=== PATIENT | male | born 1995 | race Caucasian/White ===

== ENCOUNTER 2018-04-22 15:48 | Emergency (ER) | payer BC ==
[2018-04-22] MEDS: IBUPROFEN 800 MG TAB PO (16:54)
[2018-04-22] MEDS: LIDOCAINE 1% (MDV) 10 ML INJ INJ (17:52)
[2018-04-22] MEDS: CEFAZOLIN 1 GM INJ IM (19:02)
[2018-04-22] MEDS: DIPHTH/TET/ACEL PERTUSS (ADULT) 0.5 ML VIAL IM* (19:05)
== END 2018-04-22 19:16 | disposition home or self-care (01) ==
LOC: FTE 15:48
DX: S67.197A Crushing injury of left little finger, initial encounter (principal); W23.0XXA Caught, crushed, jammed, or pinched between moving objects, initial encounter; Y92.9 Unspecified place or not applicable; Z23 Encounter for immunization
CPT/HCPCS: 12001; 73140; 90471; 90715; 96372; 99284-25